=== PATIENT | male | born 1950 | race Caucasian/White ===

== ENCOUNTER → 2019-07-31 | Outpatient (CLI) | payer OTHER, BC ==
[~2019-07-31] MED LIST: ASPIR 8181 MG PO; ASPIRIN325 PO; ATORVASTATIN CA40 MG PO; BYSTOLIC 5 MG5 M1 PO; COLACE100 MG PO; EFFIENT10 MG PO; FENOFIBRATE160 MG PO; FISH OIL 1,001000 M2 PO; LOSARTAN POTASS50 MG PO; NITROGLYCERIN0.4 MG SUBLING; PLAVIX 75 MG TA75 M1 PO; PROTONIX40 M1 PO; VASCEPA1 GM PO
== END ==
LOC: SJCVC 10:55
DX: I25.10 Atherosclerotic heart disease of native coronary artery without angina pectoris (principal); I10 Essential (primary) hypertension; E78.00 Pure hypercholesterolemia, unspecified; I65.23 Occlusion and stenosis of bilateral carotid arteries; Z79.899 Other long term (current) drug therapy

== ENCOUNTER → 2020-02-25 | Outpatient (CLI) | payer OTHER, BC | LOC: SJCVCIMAG 08:52 | PROVIDERS: ATTEND Internal Medicine Cardiovascular Disease | DX: I34.0 Nonrheumatic mitral (valve) insufficiency (principal); I25.10 Atherosclerotic heart disease of native coronary artery without angina pectoris; I10 Essential (primary) hypertension; E78.5 Hyperlipidemia, unspecified ==

== ENCOUNTER → 2020-08-26 | Outpatient (CLI) | payer OTHER, BC | LOC: SJCVC 09:50 | PROVIDERS: ATTEND Internal Medicine Cardiovascular Disease | DX: I25.10 Atherosclerotic heart disease of native coronary artery without angina pectoris (principal); I10 Essential (primary) hypertension; E78.00 Pure hypercholesterolemia, unspecified; I65.23 Occlusion and stenosis of bilateral carotid arteries; R00.1 Bradycardia, unspecified; F17.299 Nicotine dependence, other tobacco product, with unspecified nicotine-induced disorders; Z72.89 Other problems related to lifestyle; Z79.899 Other long term (current) drug therapy ==

== ENCOUNTER → 2021-05-26 | Outpatient (CLI) | payer OTHER, BC | LOC: SJCVC 08:39 → SJCVCIMAG 08:39 | PROVIDERS: ATTEND Internal Medicine Cardiovascular Disease | DX: R94.39 Abnormal result of other cardiovascular function study (principal); I25.10 Atherosclerotic heart disease of native coronary artery without angina pectoris; R07.9 Chest pain, unspecified; I10 Essential (primary) hypertension; E78.00 Pure hypercholesterolemia, unspecified; I65.23 Occlusion and stenosis of bilateral carotid arteries; C44.90 Unspecified malignant neoplasm of skin, unspecified; F17.210 Nicotine dependence, cigarettes, uncomplicated; Z72.89 Other problems related to lifestyle; Z95.2 Presence of prosthetic heart valve; Z79.899 Other long term (current) drug therapy ==

== ENCOUNTER 2021-05-29 07:51 | Observation (INO) | payer OTHER, BC ==
[~2021-05-29] VITALS: Ht 175.3 cm; Wt 80.3 kg
[2021-05-29 08:26] VITALS: BP 173/90
[2021-05-29] MEDS ORDERED: ZETIA10 MG PO (08:58)
--- NOTE | 2021-05-29 08:58 | EKG ---
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[facility] : 1950 Requested By: Sahil Guajardo Order Number: [id number] MD: Victor Manuel Lozano Measurements Intervals [place] Rate: 58 P: 69 MS: 145 QRS: 69 QRSD: 87 T: 56 QT: 402 QTc: 395 Interpretive Statements Sinus rhythm Minimal, diffuse ST segment elevation Compared to ECG 02/11/2016 18:39:39 No significant change was found Electronically Signed On 05-29-2021 8:58:10 CDT by Victor Manuel Lozano [email or web address] <ELECTRONICALLY SIGNED> By: Victor Manuel Lozano MD, [facility] 05/29/21 0858 0 0 Victor Manuel Lozano MD, FACC /EPI
[2021-05-29] MEDS ORDERED: FISH OIL 1,001000 M3 PO (09:00)
[2021-05-29] MEDS ORDERED: CRESTOR40 MG PO (09:01)
[2021-05-29] MEDS ORDERED: SUPER THERAVIT1 EACH PO (09:01)
[2021-05-29] MEDS ORDERED: COZAAR 25 MG TA25 M1 PO (09:01)
[2021-05-29] MEDS ORDERED: ASPIRIN EC325 M1 PO (09:02)
[2021-05-29 09:25] LABS: HEMATOCRIT 46.7 % (42.0-52.0); HEMOGLOBIN 16.1 gm/dL (14.0-18.0); MCH 30.9 pg (26.0-34.0); MCHC 34.4 g/dL (28.0-37.0); MCV 89.7 fL (80.0-100.0); RBC 5.2 mil/uL (4.50-6.00); RDW 12.5 % (10.5-14.5); WBC 10.2 thou/uL (4.0-11.0)
[2021-05-29 09:43] LABS: CALCIUM 8.7 mg/dL (8.5-10.1); CREATININE 0.9 mg/dL (0.7-1.3); POTASSIUM 3.9 mmol/L (3.5-5.1)
[2021-05-29] MEDS ORDERED: EFFIENT10 MG PO (12:33)
[2021-05-29] MEDS ORDERED: PROTONIX40 M2 PO (13:33)
--- NOTE | 2021-05-29 14:04 | EKG ---
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
[2021-05-29 14:35] VITALS: BP 151/78
--- NOTE | 2021-05-29 17:16 | NUR ---
PT ARRIVED ON FLOOR AT APPROXIMATELY 1430 TODAY AFTER HAVING 2 STINTS (SEE REPORT). PT DENIED PAIN, N/V, OR SOA. GROIN SITE C/D/I NO HEMATOMA PRESENT.
[2021-05-29 20:15] VITALS: BP 168/93
--- NOTE | 2021-05-29 21:55 | NUR ---
ASSUMED PT CARE AT 1900, PT IS AWAKE, ALERT AND ORIENTEDX4, DENIES PAIN OR DISCOMFORT, OFF BEDREST AT 1900, UP TO THE BATHROOM WITH STEADY GAIT, R. GROIN SITE REMAINS CDI, NO HEMAOMA NOTED, SR ON TELE, ASSESSMENTS CHARTED, NO DISTRESS NOTED, WILL CONTINUE TO MONITOR PT PER POC
--- NOTE | 2021-05-29 23:26 | CATHLAB ---
[facility] [place] [address] INVASIVE PROCEDURE REPORT Name: DENNIS RODGERS Room #: 200-I ADM Janak Dewitt#: [id number] Admission: 05/29/21 Attend Phys: Sahil Guajardo MD, Discharge: Date of : 52 Report #: [id number] THIS REPORT FOR: cc: Jareth Carrington Theodore M. DO Mancuso, Gerald M. MD [facility] ~ APPROVED REPORT Study performed: 05/29/2021 09:58:27 Patient Details Patient Status: Out-Patient Room #: The patient is a 70 year-old male Event Personnel Sahil Guajardo Secret Code Expert, Ileana Pierre RN RN, Juliana Bryan RTR Monitor, Carin Villeda Procedures Performed Art Access - R femoral artery* Left Heart Cath w/or w/o Coronaries [id number] [facility] w/wo Plasty Single RCA 728859 Hemostasis w/ Mynx 48311 Initial Mod Sed Same Phys/QHP Gr5y 413652 44711 Mod Sed Same Phys/QHP Ea 145836 Procedure Narrative The Right Groin^ was infiltrated with 1% Lidocaine subcutaneous anesthesia. A PINNACLE 6FR Sheath #[id number] sheath was inserted into the RFA^. Coronary angiography was performed using coronary diagnostic catheters. The right coronary system was accessed and visualized with a JR4 catheter. The left coronary system was accessed and visualized with a JL4 catheter. The left ventricle was accessed and visualized with a PIGTAIL catheter. Left ventriculogram was performed in 30 degree projection. Hemostasis was obtained with manual pressure following sheath removal without any complications. The patient tolerated the procedure well and there were no complications associated with the procedure. There was no hematoma. Intraoperative Conscious Sedation Sedation start time: 11:07 Case end Time: 12:41 Fentanyl 150 mcg Versed 3 mg Fluoro Time: 7.42 minutes [facility] [place] [address] INVASIVE PROCEDURE REPORT Name: DENNIS RODGERS Room #: 200-I [facility] [place] .R.#: [id number] Admission: 05/29/21 Attend Phys: Sahil Guajardo, Discharge: Date of : 52 Report #: [id number] Dose: DAP 6117.30 cGycm2 787 mGy Contrast Type and Amount: Omnipaque 190 ml Hemodynamics The aortic pressure is 160/58 mmHg with a mean of 86 mmHg. The left ventricular pressure is 159/-5 mmHg with a mean of mmHg. The left ventricular end diastolic pressure is 13 mmHg. PCI Technique Lesion Percutaneous coronary intervention was performed on the distal right coronary artery. A LAUNCHER 6FR JR 4 #[id number] Guide Catheter was used to engage the ostium. A Luge Wire .014 x 182CM #[id number] Interventional Guidewire was used to cross the lesion. BALLOON DILATION A Balloon catheter Sprinter OTW 2.5 x 12 #[id number] was inserted and inflated up to 14.00atm for 19seconds. STENT DEPLOYMENT A drug-eluting stent RESOLUTE PATRICK OTW 3.5 X 15 #[id number] was inserted and inflated up to 18atm for 29seconds. POST STENT DEPLOYMENT BALLOON DILATION A Balloon catheter TREK NC OTW 3.75 X 12 #[id number] was inserted and inflated up to 18.00atm for 22seconds. PCI Technique Lesion 2 Percutaneous Coronary Intervention was performed on the proximal right coronary artery. A LAUNCHER 6FR JR 4 #159808 Guide Catheter was used to engage the ostium. A Luge Wire .014 x 182CM #[id number] Interventional Guidewire was used to cross the lesion. Stent Deployment A drug-eluting stent RESOLUTE PATRICK OTW 3.5 X 12 #[id number] was inserted and inflated up to 20.00atm for 26seconds. Post Stent Deployment Balloon Dilation A Balloon catheter TREK NC OTW 3.75 X 12 #[id number] was inserted and inflated up to 20.00atm for 25seconds. Conclusion #1 Successful PTCA stent of a distal dominant RCA lesion. 95% to 0% with placement of a 3.5 x 15 resolute stent postdilated 3.9 mm GILL grade III flow into a large dominant PDA FREDI system. #2 successful PTCA stent of proximal in-stent restenosis in the dominant right coronary artery. Placement of a 3.5 x 12 resolute [facility] [address] [place] [address] INVASIVE PROCEDURE REPORT Name: DENNIS RODGERS Room #: 200-I ADM IN ..#: [id number] Admission: 05/29/21 Attend Phys: Sahil Guajardo, Discharge: Date of : 52 Report #: [id number] stent postdilated 3.9 mm GILL grade III flow #3 left main with ostial proximal disease in the 50 to 60% range showing minimal progression filling in LAD diagonal circumflex system. #4 LAD with mild irregularities there is a 60% at the diagonal bifurcation also unchanged from prior exam. Preserved distal vessel. This is a type I LAD which stops short of the apex. #5 circumflex OM has a ramus branch which is an eccentric lesion of 40% and then a smaller circumflex system with mild irregularities and small in caliber. #6 normal left ventricular size and systolic function EF 60%. Recommendations and plan: Continue aggressive risk factor modification. Dual antiplatelet therapy is initiated. Patient transferred to CCU to follow post coronary stent protocol. Will follow left main disease. Consideration was given to revascularization by bypass. But there is been slow progression of left main Culprit lesions are clearly high-grade distal RCA and proximal disease. <ELECTRONICALLY SIGNED> By: Sahil Guajardo MD, FACC 05/29/212325 25 25 Sahil Guajardo MD, FACC /INF
[2021-05-30 00:05] VITALS: BP 123/61
[2021-05-30 04:37] LABS: HEMATOCRIT 44.6 % (42.0-52.0); HEMOGLOBIN 14.9 gm/dL (14.0-18.0); MCH 30.5 pg (26.0-34.0); MCHC 33.5 g/dL (28.0-37.0); RBC 4.91 mil/uL (4.50-6.00); RDW 12.6 % (10.5-14.5); WBC 12.5 thou/uL (4.0-11.0)
[2021-05-30 04:41] VITALS: BP 121/74
[2021-05-30 05:06] LABS: ALBUMIN 3.4 g/dL (3.4-5.0); CALCIUM 8.2 mg/dL (8.5-10.1); CREATININE 0.8 mg/dL (0.7-1.3); POTASSIUM 4.1 mmol/L (3.5-5.1); TOTAL BILIRUBIN 0.5 mg/dL (0.2-1.0); TOTAL PROTEIN 6.5 g/dL (6.4-8.2)
[2021-05-30 07:10] VITALS: BP 123/66
[2021-05-30] MEDS ORDERED: ZETIA10 MG PO (08:42)
[2021-05-30] MEDS ORDERED: CRESTOR40 MG PO (08:42)
[2021-05-30] MEDS ORDERED: BAYER CHEWABLE81 MG PO (08:56)
[2021-05-30 09:58] VITALS: BP 123/66
[2021-05-30 10:20] VITALS: BP 123/66
--- NOTE | 2021-05-30 10:50 | NUR ---
1029 PT IS DISCHARGED HOME WITH WITH SELF CARE.PT IS GIVEN ALL DISCHARGE AND FOLLOW UP INTSRUCTIONS. PT IS EDUCATED ON NEW PRESCRIPTIONS. PT IS ESCORTED OFF OF UNIT ACCMOPANIED BY AND STAFF.
== END 2021-05-30 10:29 | disposition home or self-care (01) ==
LOC: CATH 07:51 → 2N 11:37
PROVIDERS: Nurse Practitioner Adult Health; ADMIT Internal Medicine Cardiovascular Disease; ATTEND Internal Medicine Cardiovascular Disease
DX: I25.10 Atherosclerotic heart disease of native coronary artery without angina pectoris (principal); I10 Essential (primary) hypertension; E78.5 Hyperlipidemia, unspecified; I65.23 Occlusion and stenosis of bilateral carotid arteries; E78.00 Pure hypercholesterolemia, unspecified; F17.210 Nicotine dependence, cigarettes, uncomplicated; Z79.82 Long term (current) use of aspirin; Z79.899 Other long term (current) drug therapy; Z23 Encounter for immunization

== ENCOUNTER → 2021-07-13 | Outpatient (CLI) | payer OTHER, BC ==
[~2021-07-13] MED LIST changes: +ASPIRIN EC325 M1 PO; +BAYER CHEWABLE81 MG PO; +COZAAR 25 MG TA25 M1 PO; +CRESTOR40 MG PO; +FISH OIL 1,001000 M3 PO; +PROTONIX40 M2 PO; +SUPER THERAVIT1 EACH PO; +ZETIA10 MG PO
== END ==
LOC: SJCVC 11:25
PROVIDERS: ATTEND Internal Medicine Cardiovascular Disease
DX: I10 Essential (primary) hypertension (principal); I25.10 Atherosclerotic heart disease of native coronary artery without angina pectoris; E78.00 Pure hypercholesterolemia, unspecified; R94.39 Abnormal result of other cardiovascular function study; I65.23 Occlusion and stenosis of bilateral carotid arteries; F17.210 Nicotine dependence, cigarettes, uncomplicated; F17.200 Nicotine dependence, unspecified, uncomplicated; Z79.82 Long term (current) use of aspirin; Z79.899 Other long term (current) drug therapy; Z72.89 Other problems related to lifestyle